=== PATIENT | female | born 1950 | race African-American/Black ===

== ENCOUNTER → 2022-11-05 | Outpatient (CLI) | payer MEDICARE, MEDICAID | END | disposition home or self-care (01) | LOC: LAB 13:30 | PROVIDERS: ATTEND Internal Medicine | DX: Z12.11 Encounter for screening for malignant neoplasm of colon (principal) | CPT/HCPCS: 82270 ==

== ENCOUNTER → 2022-12-24 | Outpatient (CLI) | payer OTHER ==
[2022-12-24 11:21] LABS: Basophils # (auto) 0.1 10 ^3/uL (0-0.2); Basophils % (auto) 1.2 % (0.0-2.0); Eosinophils # (auto) 0.1 10 ^3/uL (0-0.8); Eosinophils % (auto) 1.6 % (0.0-7.0); Hematocrit 38.9 % (36.0-46.0); Hemoglobin 13.1 g/dL (12.2-16.2); Lymphocytes % (auto) 25.1 % (10.0-50.0); Mean Corpuscular Hemoglobin 32.3 pg (28.0-32.0); Mean Corpuscular Hgb Conc. 33.7 g/dL (32.0-36.0); Mean Corpuscular Volume 95.9 fL (80.0-100.0); Monocytes # (auto) 0.5 10 ^3/uL (0-1.3); Monocytes % (auto) 6.3 % (0.0-12.0); Neutrophils # (auto) 5.2 10 ^3/uL (1.6-8.6); Neutrophils % (auto) 65.8 % (37.0-80.0); Nucleated Red Blood Cells % 0.1 %; Red Blood Cells 4.06 10^6/uL (4.0-5.20); White Blood Cell 7.9 10^3/uL (4.4-10.8)
[2022-12-24 12:03] LABS: Urine Bacteria FEW /hpf (None Seen); Urine Blood Negative /uL (Negative); Urine Specific Gravity 1.028 (1.001-1.035); Urine WBC 5 /hpf (0 - 5)
[2022-12-24 12:10] LABS: Albumin 3.5 g/dL (3.4-5.0)
[2022-12-24 12:39] LABS: BUN/Creatinine Ratio 9.7 (10.0-20.0); Bilirubin, Total 0.4 mg/dL (0.2-1.0); Calcium 9.1 mg/dL (8.5-10.1); Total Protein 7.7 g/dL (6.4-8.2)
== END | disposition home or self-care (01) ==
LOC: LAB 10:56
PROVIDERS: ATTEND Internal Medicine Hematology & Oncology
DX: N18.31 Chronic kidney disease, stage 3a (principal); E11.22 Type 2 diabetes mellitus with diabetic chronic kidney disease; E11.42 Type 2 diabetes mellitus with diabetic polyneuropathy; D50.0 Iron deficiency anemia secondary to blood loss (chronic); E11.69 Type 2 diabetes mellitus with other specified complication; M06.9 Rheumatoid arthritis, unspecified; D50.8 Other iron deficiency anemias; E55.9 Vitamin D deficiency, unspecified; E21.3 Hyperparathyroidism, unspecified; H16.223 Keratoconjunctivitis sicca, not specified as Sjogren's, bilateral; Z98.84 Bariatric surgery status
CPT/HCPCS: 36415; 80053; 80061; 81001; 82043; 83036; 84436; 84443; 85025; 87086

== ENCOUNTER 2023-02-25 13:19 | Inpatient (IN) | payer OTHER, MEDICAID ==
[~2023-02-25] VITALS: Ht 160 cm; Wt 80.9 kg
[2023-02-25] MEDS ORDERED: traMADol HCL 50 MG TAB PO ONE (15:00)
[2023-02-25] MEDS ORDERED: PROCHLORPERAZINE EDISYLATE 5 MG/ML 2ML VIAL IM ONE (15:00)
[2023-02-25 15:01] LABS: Basophils # (auto) 0.1 10 ^3/uL (0-0.2); Basophils % (auto) 1.3 % (0.0-2.0); Eosinophils # (auto) 0.1 10 ^3/uL (0-0.8); Eosinophils % (auto) 0.6 % (0.0-7.0); Hematocrit 38.7 % (36.0-46.0); Hemoglobin 12.6 g/dL (12.2-16.2); Lymphocytes # (auto) 1.7 10 ^3/uL (0.4-5.4); Lymphocytes % (auto) 15.6 % (10.0-50.0); Mean Corpuscular Hemoglobin 30.9 pg (28.0-32.0); Mean Corpuscular Hgb Conc. 32.6 g/dL (32.0-36.0); Mean Corpuscular Volume 94.8 fL (80.0-100.0); Monocytes # (auto) 0.8 10 ^3/uL (0-1.3); Monocytes % (auto) 7.9 % (0.0-12.0); Neutrophils # (auto) 7.9 10 ^3/uL (1.6-8.6); Neutrophils % (auto) 74.6 % (37.0-80.0); Red Blood Cells 4.09 10^6/uL (4.0-5.20); Red Cell Distribution Width 15.4 % (11.8-14.3); White Blood Cell 10.6 10^3/uL (4.4-10.8)
[2023-02-25 15:18] LABS: Albumin 3.4 g/dL (3.4-5.0); Calcium 8.9 mg/dL (8.5-10.1); Potassium 3.3 mmol/L (3.5-5.1)
[2023-02-25 15:23] LABS: BUN/Creatinine Ratio 11.2 (10.0-20.0); Bilirubin, Total 0.2 mg/dL (0.2-1.0); Total Protein 7.5 g/dL (6.4-8.2)
[2023-02-25 17:00] LABS: INR 1.03 (0.9-1.15); Partial Thromboplastin Time 27.6 SEC (24.5-34.5)
[2023-02-25 17:00] LABS: Urine Bacteria NONE SEEN /hpf (None Seen); Urine Blood Negative /uL (Negative); Urine Mucus FEW (None Seen); Urine Specific Gravity 1.016 (1.001-1.035); Urine WBC 2 /hpf (0 - 5)
[2023-02-25] MEDS ORDERED: PANTOPRAZOLE 40 MG TAB PO ONE (17:00)
[2023-02-25] MEDS ORDERED: SODIUM CHLORIDE 0.9% 1,000 ML IV ONE (18:00)
[2023-02-25] MEDS ORDERED: ONDANSETRON HCL 4 MG/2 ML VIAL IV ONE (18:00)
[2023-02-25] MEDS ORDERED: METO5TAB2 PO (18:51)
[2023-02-25] MEDS ORDERED: DOCU-265 PO (18:51)
[2023-02-25] MEDS ORDERED: ATOR20TA50 PO (18:51)
[2023-02-25] MEDS ORDERED: FERR1TAB8 PO (18:51)
[2023-02-25] MEDS ORDERED: CLON0.1T PO (18:51)
[2023-02-25] MEDS ORDERED: FURO40TA4 PO (18:51)
[2023-02-25] MEDS ORDERED: LISI20TA56 PO (18:51)
[2023-02-25] MEDS ORDERED: DIVA1TAB59 PO (18:52)
[2023-02-25] MEDS ORDERED: MORPHINE SULFATE INJ 2 MG/ml SYRG IV PRN ×2 (19:00)
[2023-02-25] MEDS ORDERED: HYDROcodone-ACET 5/325MG TAB PO PRN (19:00)
[2023-02-25] MEDS ORDERED: NITROGLYCERIN 0.4 MG SL TAB SL PRN (19:00)
[2023-02-25] MEDS ORDERED: POTASSIUM EFFERVESENT TAB 25 MEQ PO ONE (19:00)
[2023-02-25] MEDS ORDERED: ACETAMINOPHEN 325 MG TAB PO PRN (19:00)
[2023-02-25] MEDS ORDERED: hydrALAZINE HCL 20 MG/ML VL IV PRN (19:00)
[2023-02-25] MEDS ORDERED: ONDANSETRON HCL 4 MG/2 ML VIAL IV PRN (19:00)
[2023-02-25] MEDS ORDERED: DEXTROSE (50%) 50ML SYRG IV PRN (19:15)
[2023-02-25] MEDS: SODIUM CHLORIDE 0.9% 1,000 ML IV SCH (20:45)
[2023-02-25] MEDS ORDERED: cloNIDine HCL 0.1 MG TAB PO SCH (22:00)
[2023-02-25] MEDS: ACCU-CHEK COMFORT CURVE STRIP VI SCH (23:03)
[2023-02-25] MEDS: InsuLIN REG 1unit/0.01ml Soln (100units/ml) SC SCH (23:09)
[2023-02-25] MEDS: FERROUS SULFATE 325mg EC TAB PO SCH (23:10)
[2023-02-25] MEDS: DOCUSATE SOD 100 MG CAP PO SCH (23:11)
[2023-02-26] MEDS: SODIUM CHLORIDE 0.9% 1,000 ML IV SCH ×3 (01:40→16:52)
[2023-02-26 06:23] LABS: Basophils # (auto) 0.1 10 ^3/uL (0-0.2); Basophils % (auto) 0.5 % (0.0-2.0); Eosinophils # (auto) 0 10 ^3/uL (0-0.8); Hematocrit 36.2 % (36.0-46.0); Hemoglobin 11.6 g/dL (12.2-16.2); Lymphocytes # (auto) 1.3 10 ^3/uL (0.4-5.4); Lymphocytes % (auto) 9.5 % (10.0-50.0); Mean Corpuscular Hemoglobin 30.5 pg (28.0-32.0); Mean Corpuscular Hgb Conc. 32.1 g/dL (32.0-36.0); Monocytes # (auto) 0.4 10 ^3/uL (0-1.3); Neutrophils # (auto) 11.6 10 ^3/uL (1.6-8.6); Red Blood Cells 3.81 10^6/uL (4.0-5.20); Red Cell Distribution Width 15.3 % (11.8-14.3); White Blood Cell 13.3 10^3/uL (4.4-10.8)
[2023-02-26] MEDS: ACCU-CHEK COMFORT CURVE STRIP VI SCH ×3 (06:24→17:00)
[2023-02-26] MEDS: InsuLIN REG 1unit/0.01ml Soln (100units/ml) SC SCH ×3 (06:38→17:00)
[2023-02-26 06:43] LABS: Potassium 3.4 mmol/L (3.5-5.1)
[2023-02-26 06:48] LABS: Albumin 3.1 g/dL (3.4-5.0); BUN/Creatinine Ratio 12.9 (10.0-20.0); Bilirubin, Total 0.2 mg/dL (0.2-1.0); Calcium 8.4 mg/dL (8.5-10.1); Total Protein 7.1 g/dL (6.4-8.2)
[2023-02-26 09:40] LABS: Alcohol, Urine < 3.0 mg/dL (0-10); Amphetamine Screen, Urine NEGATIVE (NEGATIVE); Barbiturate Scree,Urine NEGATIVE (NEGATIVE); Benzodiazephine Screen, Urine NEGATIVE (NEGATIVE); Cannabinoid Screen, Urine NEGATIVE (NEGATIVE); Cocaine Screen, Urine NEGATIVE (NEGATIVE); Opiate Scree,Urine NEGATIVE (NEGATIVE); Phencyclidine Screen, Urine NEGATIVE (NEGATIVE)
[2023-02-26 09:56] VITALS: PULSE 81; RESP 16; O2SAT 99
[2023-02-26 10:00] VITALS: BP 143/88; PULSE 81; RESP 16; TEMP 98; O2SAT 99
[2023-02-26] MEDS ORDERED: ATORVASTATIN 20 MG TAB PO SCH (10:00)
[2023-02-26] MEDS ORDERED: PANTOPRAZOLE 40 MG/10 ML VIAL INJ IV SCH (10:00)
[2023-02-26] MEDS ORDERED: LISINOPRIL 20 MG TAB PO SCH (10:00)
[2023-02-26] MEDS ORDERED: FUROSEMIDE 40 MG TAB PO SCH (10:00)
[2023-02-26] MEDS: DOCUSATE SOD 100 MG CAP PO SCH (10:29)
[2023-02-26 10:30] VITALS: BP 143/88; PULSE 81; RESP 16; TEMP 98
[2023-02-26] MEDS ORDERED: PNEUMOCOCCAL VACC POLYS 25 MCG/0.5 ML VIAL IM ONE ×2 (10:30→16:45)
[2023-02-26] MEDS: FERROUS SULFATE 325mg EC TAB PO SCH (10:31)
[2023-02-26] MEDS ORDERED: CLON0.1T PO (10:49)
[2023-02-26] MEDS ORDERED: OMEP20TA PO (10:49)
[2023-02-26] MEDS ORDERED: CYCL-837 PO (10:49)
[2023-02-26] MEDS ORDERED: METO5TAB2 PO (10:49)
[2023-02-26] MEDS ORDERED: DOCU-94 PO (10:49)
[2023-02-26] MEDS ORDERED: FERR325T24 PO (10:49)
[2023-02-26] MEDS ORDERED: GASTROGRAFIN 120 ML SOL ONE (13:10)
[2023-02-26 13:22] VITALS: BP 124/69; PULSE 79; RESP 16; TEMP 98.1; O2SAT 95
[2023-02-26] MEDS ORDERED: PANT40TA2 PO (13:22)
[2023-02-26] MEDS ORDERED: CEPH250C PO (13:22)
[2023-02-26] MEDS ORDERED: LANC-347 XX (13:22)
[2023-02-26] MEDS ORDERED: EMPA1TAB3 PO (13:22)
[2023-02-26] MEDS ORDERED: ZOFR4T PO (13:22)
[2023-02-26] MEDS ORDERED: BLOO1KIT60 XX (13:22)
[2023-02-26 16:03] VITALS: BP 124/69; PULSE 79; RESP 16; TEMP 36.7; O2SAT 95
[2023-02-26 16:52] VITALS: BP 121/75; PULSE 79; RESP 15; TEMP 97.8; O2SAT 99
== END 2023-02-26 17:11 | disposition home or self-care (01) | DRG 392 ==
LOC: ER 13:19 → TELE 19:05 → TELE-CENTR 02-26 08:59
PROVIDERS: ADMIT Internal Medicine; ATTEND Internal Medicine
DX: K52.9 Noninfective gastroenteritis and colitis, unspecified (principal); N17.9 Acute kidney failure, unspecified; I50.42 Chronic combined systolic (congestive) and diastolic (congestive) heart failure; I16.0 Hypertensive urgency; E87.6 Hypokalemia; I11.0 Hypertensive heart disease with heart failure; E78.5 Hyperlipidemia, unspecified; Z23 Encounter for immunization; K21.9 Gastro-esophageal reflux disease without esophagitis; G40.909 Epilepsy, unspecified, not intractable, without status epilepticus; Z98.84 Bariatric surgery status; E11.9 Type 2 diabetes mellitus without complications
CPT/HCPCS: 36415; 74176; 76700; 80053; 80307; 81001; 82962; 83036; 83690; 83880; 84443; 84484; 85025; 85610; 85730; 93005; 96372; 96374; 96375; 96376; C9113; G0378; J1815; J2405

== ENCOUNTER → 2023-07-09 | Outpatient (CLI) | payer OTHER ==
[~2023-07-09] MED LIST: ATOR20TA50 PO; BLOO1KIT60 XX; CEPH250C PO; CLON0.1T PO; DIVA1TAB59 PO; DOCU-94 PO; EMPA1TAB3 PO; FERR325T24 PO; FURO40TA4 PO; LANC-347 XX; LISI20TA56 PO; METO5TAB2 PO; OMEP20TA PO; PANT40TA2 PO; ZOFR4T PO
== END | disposition home or self-care (01) ==
LOC: LAB 12:18
PROVIDERS: ATTEND Internal Medicine Hematology & Oncology
DX: R79.9 Abnormal finding of blood chemistry, unspecified (principal); E78.5 Hyperlipidemia, unspecified
CPT/HCPCS: 36415; 83036

== ENCOUNTER → 2023-08-14 | Outpatient (CLI) | payer OTHER | END | disposition home or self-care (01) | LOC: LAB 09:26 | PROVIDERS: ATTEND Internal Medicine Hematology & Oncology | DX: E11.22 Type 2 diabetes mellitus with diabetic chronic kidney disease (principal); N18.9 Chronic kidney disease, unspecified | CPT/HCPCS: 36415; 83036 ==